=== PATIENT | female | born 1970 | race Caucasian/White ===

== ENCOUNTER 2017-02-02 17:12 | Emergency (ER) | payer OTHER ==
[~2017-02-02 17:12] MED LIST: ABILIFY 5MG5 MG PO; AUGMENTIN 875-1 EACH PO; BACTRIM DS 8001 TAB PO; BACTRIM DS TAB1 EACH PO; CARISOPRODOL350 M1 PO; CLINDAMYCIN HC300 M1 PO; DEXAMETHASONE4 M1 PO; DILAUDID2 M1 PO; FOLIC ACID1 M1 PO; LUNESTA3 M1 PO; MAXALT10 M1 PO; MAXALT10 MG PO; METHOTREXATE2.5 M2 PO; OMEPRAZOLE20 M3 PO; OPANA ER20 M1 PO; PERCOCET 10-321 EACH PO; PREDNISONE 20MG20 MG PO; PREDNISONE10 M2 PO; PREDNISONE20 M1 PO; SERTRALINE HCL100 MG PO; TOPAMAX100 M1 PO; VALACYCLOVIR1000 MG PO
--- NOTE | 2017-02-02 19:10 | ED ANKLE/FOOT INJURY COMPLAINT ---
History of Present Illness General Chief Complaint: Foot or Ankle Injury Stated Complaint: L FOOT PAIN S/P MIRROR FALL ON TOE Source: patient Exam Limitations: no limitations Vital Signs & Intake/Output Vital Signs & Intake/Output Vital Signs Date Time Temp Pulse Resp B/P B/P Pulse O2 O2 Flow FiO2 Mean Ox Delivery Rate 02/02 2022 98 Room Air 02/03 1952 96.5 75 20 127/65 98 Room Air 02/026 98.0 69 15 124/74 100 Room Air Allergies Coded Allergies: shellfish derived (SWELLING=FACIAL SWELLING 01/18/16) Reconcile Medications Atorvastatin Calcium 20 MG TABLET 1 TAB PO QPM CHOLESTEROL (Reported) Carisoprodol 350 MG TABLET 1 TAB PO TID MUSCLE SPASMS (Reported) Doxycycline Hyclate 100 MG TABLET 1 TAB PO BID fx Eszopiclone (Lunesta) 3 MG TABLET 1 TAB PO QPM SLEEP (Reported) Folic Acid 1 MG TABLET 1 TAB PO DAILY SUPPLEMENT (Reported) Gabapentin 300 MG CAPSULE 1 CAP PO TID ANXIETY (Reported) Methotrexate 2.5 MG TABLET 5 TAB PO QTUES RA (Reported) Multivitamin (Multi-Day Vitamins) 1 EACH TABLET 1 TAB PO DAILY SUPPLEMENT ( Reported) Omeprazole 20 MG TABLET.DR 1 TAB PO DAILY GI (Reported) Oxycodone HCl/Acetaminophen (Percocet 10-325 MG Tablet) 1 EACH TABLET 1 TAB PO 6XDAILY PRN PAIN (Reported) Oxymorphone HCl (Opana ER) 20 MG TAB.ER.12H 1 TAB PO BID PAIN (Reported) Prednisone 5 MG TABLET 1 TAB PO PRN RA (Reported) Pyridoxine HCl (Vitamin B-6) (Unknown Strength) CAPSULE (Unknown Dose) PO DAILY SUPPLEMENT (Reported) Rizatriptan Benzoate (Maxalt) 10 MG TABLET 1 TAB PO BID PRN MIGRAINES ( Reported) Sertraline HCl 100 MG TABLET 1 TAB PO BID MENTAL HEALTH (Reported) Topiramate (Topamax) 100 MG TABLET 1 TAB PO BID MIGRAINES (Reported) Valacyclovir HCl (Valacyclovir) 1,000 MG TABLET 1 TAB PO DAILY ANTIVIRAL ( Reported) Triage Note: PT TO ED FOR L TOE PAIN AFTER A MIRROR FELL ON IT OVER THE WEEKEND, TOE APPEARS RED AND SWOLLEN, ABRASION ON IT, PT REPORTING HER MAIN CONCERN IS INFECTION DUE A SCHEDULED HYSTERECTOMY NEXT WEEK. MEDICATED WITH TYLENOL 650MG IN TRIAGE AND ICE PACK APPLIED. Triage Nurses Notes Reviewed? yes Occurred: yesterday Duration: day(s): (1), constant, continues in ED Timing: recent history Severity: moderate, severe Pain/Injury Location: Left: Foot. Method of Injury: direct blow No Modifying Factors: none HPI: 46-year-old female comes into emergency room for evaluation of swelling and pain to left foot. Patient reports that mirror fell off of the back of a door onto her foot. Can abrasion. Sharp throbbing pain. Associated bruising. Denies any injury, anywhere else. Denies numbness associated symptoms. (BLESSING ANDERS) Past History Travel History Traveled to [place] past 21 day No Medical History Any Pertinent Medical History? see below for history Neurological: vertigo EENT: tonsil infections Cardiovascular: NONE Respiratory: NONE Gastrointestinal: NONE Hepatic: cholelithiasis Renal: NONE Musculoskeletal: chronic back pain, degen joint disease, rheumatoid arthritis Psychiatric: anxiety, chronic pain disorder, depression Endocrine: NONE Blood Disorders: NONE Cancer(s): NONE INTERVIEWING CLERK/Reproductive: NONE Other Medical Hx: CELLULITIS History of MRSA: No History of VRE: No History of CDIFF: No Tetanus Vaccine: 01/04/12 Surgical History Surgical History: cholecystectomy, , LUMBAR SURGERY meniscal surgery left knee status post neurostimulator placement status post cervical conization Psychosocial History Who do you live with Family Services at Home None What is your primary language [place] Family History Hx Contributory? No (BLESSING ANDERS) Review of Systems Review of Systems Constitutional: Reports: no symptoms. EENTM: Reports: no symptoms. Respiratory: Reports: no symptoms. Cardiovascular: Reports: no symptoms. GI: Reports: no symptoms. Genitourinary: Reports: no symptoms. Musculoskeletal: Reports: see HPI. Skin: Reports: see HPI. Neurological/Psychological: Reports: no symptoms. Hematologic/Endocrine: Reports: no symptoms. Immunologic/Allergic: Reports: no symptoms. All Other Systems: Reviewed and Negative (BLESSING ANDERS) Physical Exam Physical Exam General Appearance: well developed/nourished, mild distress Head: atraumatic Eyes: Bilateral: normal appearance. Ears, Nose, Throat: normal ENT inspection, hearing grossly normal Neck: normal inspection Cardiovascular/Respiratory: no respiratory distress Back: normal inspection Leg/Knee/Thigh Left: normal inspection Foot Left: ecchymosis, limited range of motion, soft tissue tenderness, swelling , skin abrasion Neuro/Vascular: normal motor function, normal sensation Psychiatric: awake, alert, oriented x 3 Skin: intact, normal color, warm/dry (BLESSING ANDERS) Progress Differential Diagnosis: CHF, cellulitis, septic arthritis, gout, fracture, dislocation, sprain, contusion, compartmental syndrome Plan of Care: Current Medications Sig/Bakari Start time Last Medication Dose Stop Time Status Admin Oxycodone/ 2 TAB ONCE ONE 02/02 2015 UNVr Acetaminophen 02/03 2016 (Percocet) Diagnostic Imaging: Viewed by Me: Radiology Read. Discussed w/RAD: Radiology Read. Radiology Impression: SERVICE DATE: 02/02/17 EXAM TYPE: RAD - XRY-TOES, LEFT EXAMINATION: XR TOES, LEFT CLINICAL INFORMATION: Rule out fracture. Pain and swelling of toes. Reported trauma. COMPARISON: None TECHNIQUE: 3 views of the left toes were obtained. FINDINGS: There is bony fragmentation at the lateral base of the distal phalanx of the second digit with surrounding soft tissue swelling. The remaining osseous structures are normal. The joint spaces are obtained. IMPRESSION: Focal bony fragmentation along the lateral base of the distal phalanx of the second digit with surrounding soft tissue swelling. Given history of trauma, findings likely reflect small avulsion fracture fragments. DICTATED BY: LUCIEN VIRAMONTES MD DATE/TIME DICTATED:02/02/171943 MACHINE RIVETER:ALPESH DATE/TIME TRANSCRIBED:02/02/171943 CONFIDENTIAL, DO NOT COPY WITHOUT APPROPRIATE AUTH (BLESSING ANDERS) Departure Departure Disposition: HOME OR SELF CARE Condition: Stable Clinical Impression Primary Impression: Toe fracture, left Secondary Impressions: Skin abrasion Referrals: MAINOR HUTCHINSON,CHELA ANDRES MD,DAIN (PCP/Family) Additional Instructions: Take Percocet at home. Stay and pneumatic boot. Follow-up with orthopedic doctor. Return if any concerns worsening symptoms. Take doxycycline as prescribed. Please go over all results of today's visit with your primary care doctor. Contact your primary care doctor to let them know you were here in the emergency room. There may be nonspecific findings which may not be related to your visit today here in the emergency room but may require further evaluation and chronic monitoring by your primary care doctor. If you had a laceration today the chance of foreign body always remains. You should follow-up with your primary care doctor for recheck in 3-5 days for a wound check. If you had an x-ray done there is a chance that a fracture could have been missed on initial read and you should follow-up with your primary care doctor for repeat x-rays if symptoms persist. If your blood pressure was elevated here in the emergency room please have rechecked by her primary care doctor within the next 48 hours by your primary care doctor. If you were prescribed a narcotic here in the emergency room or any type of controlled substances you're not allowed to drive while taking this medication or operate any type of heavy machinery. Narcotics can make you feel lightheaded dizziness nausea and can cause constipation. You may need to corn picker a stool softener. Thank you for choosing [facility] emergency room. Please return to the emergency room immediately if you have any other concerns worsening of symptoms. Departure Forms: Customer Survey General Discharge Information Prescriptions: Current Visit Scripts Doxycycline Hyclate 1 TAB PO BID #14 TAB Comments Irrigated with peroxide and dressed with bacitracin. (BLESSING ANDERS) PA/TELEVISION AUDIO ENGINEER Co-Sign Statement Statement: ED Attending supervision documentation- [] I saw and evaluated the patient. I have also reviewed all the pertinent lab results and diagnostic results. I agree with the findings and the plan of care as documented in the PA's/TELEVISION AUDIO ENGINEER's documentation. [X] I have reviewed the ED Record and agree with the PA's/TELEVISION AUDIO ENGINEER's documentation. [] Additions or exceptions (if any) to the PAs/TELEVISION AUDIO ENGINEER's note and plan are summarized below: [] (PHILL HUTCHINSON,LUCIEN Kam) Procedures Splinting Location: left foot Manual Alignment Performed: No Pre-Made Type: pneumatic boot Splint Applied By: splint applied by me Pre-Proc Neuro Vasc Exam: normal Post-Proc Neuro Vasc Exam: normal (BLESSING ANDERS)
[2017-02-02] MEDS ORDERED: ATORVASTATIN CA20 M1 PO (19:33)
[2017-02-02] MEDS ORDERED: METHOTREXATE2.5 M2 PO (19:33)
[2017-02-02] MEDS ORDERED: PREDNISONE5 M1 PO (19:33)
[2017-02-02] MEDS ORDERED: GABAPENTIN300 M2 PO (19:33)
[2017-02-02] MEDS ORDERED: VALACYCLOVIR1000 MG PO (19:34)
[2017-02-02] MEDS ORDERED: MULTI-DAY VITA1 EACH PO (19:34)
[2017-02-02] MEDS ORDERED: VITAMIN B-650 M1 PO (19:35)
--- NOTE | 2017-02-02 19:50 | RADIOLOGY REPORT ---
EXAMINATION: XR TOES, LEFT CLINICAL INFORMATION: Rule out fracture. Pain and swelling of toes. Reported trauma. COMPARISON: None TECHNIQUE: 3 views of the left toes were obtained. FINDINGS: There is bony fragmentation at the lateral base of the distal phalanx of the second digit with surrounding soft tissue swelling. The remaining osseous structures are normal. The joint spaces are obtained. IMPRESSION: Focal bony fragmentation along the lateral base of the distal phalanx of the second digit with surrounding soft tissue swelling. Given history of trauma, findings likely reflect small avulsion fracture fragments.
[2017-02-02 19:52] VITALS: BP 127/65
[2017-02-02] MEDS ORDERED: DOXYCYCLINE HY100 M4 PO (20:06)
[2017-02-04] MEDS ORDERED: PERCOCET 10-321 EACH PO (14:08)
== END 2017-02-02 20:32 ==
LOC: ERH 17:12
DX: S92.532A Displaced fracture of distal phalanx of left lesser toe(s), initial encounter for closed fracture (principal); S90.812A Abrasion, left foot, initial encounter; W20.8XXA Other cause of strike by thrown, projected or falling object, initial encounter; Y93.9 Activity, unspecified; Y92.9 Unspecified place or not applicable
CPT/HCPCS: 73660-LT; 90471; 90714

== ENCOUNTER 2017-02-10 03:09 | Inpatient (IN) | payer OTHER ==
[~2017-02-10] VITALS: Ht 157.5 cm; Wt 87.5 kg
[2017-02-10] VITALS (10 sets, daily range): BP systolic 110–124; BP diastolic 58–70
[~2017-02-10 03:09] MED LIST changes: +ATORVASTATIN CA20 M1 PO; +DOXYCYCLINE HY100 M4 PO; +GABAPENTIN300 M2 PO; +MULTI-DAY VITA1 EACH PO; +PREDNISONE5 M1 PO; +VITAMIN B-650 M1 PO
--- NOTE | 2017-02-10 08:44 | Operative Report ---
Operative/Inv Procedure Report Surgery Date: 02/10/17 Name of Procedure: cystoscopy: bilateral stent insertion Pre-Operative Diagnosis: abnormal pap Post-Operative Diagnosis: same Estimated Blood Loss: scant Surgeon/Datacap Developer: md sebastian, meghann-urology Anesthesia: general endotracheal tube Specimens: ucx Complications: none Operative/Procedure Note Note: The patient was taken to the operating room and placed on the OR table in supine position. Timeout was performed, with the patient awake, to confirm identify, planned procedures, anesthesia, antibiotics and other pertinent jose-operative information. After adequate anesthesia, and IV antibiotics, the patient was placed in lithotomy Yellow-fin stirrups. She was then draped and prepped in the usual surgical fashion, including a vaginal prep. A 22 Greenlandic cystoscope sheath with a 30 angle lens was inserted into the bladder without significant difficulty. The bladder was thoroughly and systematically examined, and was noted to be free of tumor, free of stone, free of endometriosis. Both ureteral orifices were in their orthotopic positions with clear reflux bilaterally. Under direct visualization the left orifice was intubated with a 5 Greenlandic whistle-tip catheter, which was advanced easily into the left kidney pelvis. The right ureteral orifice was intubated with a second 5 Greenlandic ureteral whistle tip catheter, and advanced into the right renal pelvis without difficulty. For identification purposes the blue marked stent went into the left kidney and the right ureteral stent was marked red. Urine culture was obtained and sent to pathology. The cystoscope was then removed leaving both stents in proper place. An 18 Greenlandic Correa catheter was inserted draining clear fluid and 10 mL of sterile water was then placed in the balloon. The ends ureteral stents, which protruded externally, were taped to the Correa catheter in order to secure their position. The individual ureteral stents were then connected to their individual drainage devices. The patient tolerated the procedure well. All sponge needle and instrument count were correct at the end of this procedure. The patient was then placed in supine position with Venodyne's in place. At this point, Dr. Marinelli was able to proceed with the patient's planned surgery. Findings: normal bladder Discharge Disposition: proceed with dr. Marinelli CC: MEGHANN VITAL MD
--- NOTE | 2017-02-10 13:00 | NUR ---
PT ARRIVED TO FLOOR FROM PACU. DROWSY/AROUSABLE. ORIENTED X 3. O2 3L IN PLACE. VSS. SATURATION 98% ON 3L, WEANED TO 2L. PER DAUGHTER, PT "GASPS FOR BREATH" AT NIGHT SOMETIMES. QUESTIONED ABOUT SLEEP APNEA BUT HAS NOT HAD A SLEEP STUDY. PT C/O PAIN 06/15 TO LOWER ABDOMEN AND FROM CATHETER. DRY DSG IN PLACE TO ABDOMEN WITH ABDOMINAL BINDER IN PLACE. IV TYLENOL HUNG FOR PAIN. DILAUDID OPERATING ROOM RN IN PLACE WITH A 0.1MG CONTINUOUS AND 0.1MG DEMAND DOSE. PT HAS HX OF CHRONIC PAIN FOR WHICH SHE TAKES OPANA 20MG BID. PT ALSO HAS NERVE STIMULATOR TO BACK WHICH SHE STATES IS NOT ON AT THIS TIME. MED RECONCILATION DONE, MULTIPLE HOME MEDICATIONS NOT ORDERED. CALL PLACED TO DR. HAY'S ANSWERING SERVICE, AWAITING CALL BACK. PT ORIENTED TO CALL SYSTEM. TAKING SIPS OF CLEAR LIQUIDS AT THIS TIME. DAUGHTERS AT BEDSIDE.
--- NOTE | 2017-02-10 15:30 | NUR ---
CALL RETURNED FROM DR. HAY CONCERNING PT'S HOME MEDICATIONS. PER MD, PT WILL NOT RECEIVE OPANA OR ANY OTHER LONG ACTING PAIN MEDICATION WHILE IN HOSPITAL. ALSO STATES THAT SHE MUST KEEP THE CATHETER IN PLACE OVERNIGHT. PT NOTIFIED OF UPDATES.
[2017-02-10 19:01] LABS: ABSOLUTE BASOPHIL COUNT 0 /CUMM (0.0-0.2); ABSOLUTE EOSINOPHIL COUNT 0 /CUMM (0.0-0.7); ABSOLUTE GRANULOCYTE CT 8.4 /CUMM (1.4-6.5); ABSOLUTE LYMPH COUNT 0.6 /CUMM (1.2-3.4); ABSOLUTE MONOCYTE COUNT 0.2 /CUMM (0.10-0.60); BASOPHIL % 0 % (0.0-2.0); EOSINOPHIL % 0 % (0-5); HEMATOCRIT 38.7 % (37-47); MEAN CORPUSCULAR HGB 30.2 PG (27.0-31.0); MEAN CORPUSCULAR HGB CONC 32.7 G/DL (33.0-37.0); MEAN CORPUSCULAR VOLUME 92.4 FL (81.0-99.0); MEAN PLATELET VOLUME 8.6 FL (7.4-10.4); PLATELET COUNT 167 /CUMM (130-400); RED BLOOD CELL CT 4.19 /CUMM (4.20-5.40); WHITE BLOOD CELL COUNT 9.1 /CUMM (4.8-10.8)
[2017-02-10 19:12] LABS: GRANULOCYTE % 92.1 % (42.2-75.2)
[2017-02-11 01:56] VITALS: BP 124/70
[2017-02-11 04:30] VITALS: BP 136/80
[2017-02-11 06:25] VITALS: BP 134/80
[2017-02-11 08:22] LABS: ABSOLUTE BASOPHIL COUNT 0 /CUMM (0.0-0.2); ABSOLUTE EOSINOPHIL COUNT 0 /CUMM (0.0-0.7); ABSOLUTE GRANULOCYTE CT 6.4 /CUMM (1.4-6.5); ABSOLUTE LYMPH COUNT 1.1 /CUMM (1.2-3.4); ABSOLUTE MONOCYTE COUNT 0.6 /CUMM (0.10-0.60); BASOPHIL % 0.2 % (0.0-2.0); EOSINOPHIL % 0 % (0-5); GRANULOCYTE % 79.4 % (42.2-75.2); HEMATOCRIT 34.8 % (37-47); MEAN CORPUSCULAR HGB 30.4 PG (27.0-31.0); MEAN CORPUSCULAR HGB CONC 33.3 G/DL (33.0-37.0); MEAN CORPUSCULAR VOLUME 91.2 FL (81.0-99.0); MEAN PLATELET VOLUME 8.9 FL (7.4-10.4); PLATELET COUNT 158 /CUMM (130-400); RBC DISTRIBUTION WIDTH 15.3 % (11.5-14.5); RED BLOOD CELL CT 3.82 /CUMM (4.20-5.40)
[2017-02-11 10:00] VITALS: BP 118/78
--- NOTE | 2017-02-11 10:18 | Operative Report ---
Operative/Inv Procedure Report Surgery Date: 02/10/17 Name of Procedure: Total abdominal hysterectomy bilateral salpingo-oophorectomy Pre-Operative Diagnosis: Chronic cervical dysplasia Post-Operative Diagnosis: Same Estimated Blood Loss: 50ml to 100ml Surgeon/Director Rehabilitation Program: HAYLEY WALTERS MD,ЮЛИЯ Arreguin M.D. Anesthesia: general endotracheal tube Operative/Procedure Note Note: The patient was brought to the operating room and placed on the OR table in the dorsal supine position. After general anesthesia was administered she was successfully intubated. She was repositioned into modified dorsal lithotomy and underwent ureteral stent insertion by Dr. Duarte. She was then given a tabs block by anesthesia. She was repositioned into dorsal supine. A Correa catheter was draining clear yellow urine status post a stent procedure. Her abdomen was prepped and draped in usual sterile fashion. A Pfannenstiel skin incision was made with a scalpel and this was taken down to the layer of the fascia. The fascia was nicked in the midline and extended bilaterally. The rectus muscles were and the peritoneal cavity was entered sharply. Examination of the pelvic organs revealed a 14 week size uterus with normal ovaries. Intestines were packed away with moistened laparotomy pads. An O'Rich[place]-O' Kennedy retractor was placed and a bladder light was placed with a period of double-tooth tenaculum was attached to the fundus of the uterus and this was elevated throughout the procedure. The right round ligament was suture ligated with 0 Polysorb and tagged. Same procedure repeated on the left. The bladder flap was created using Metzenbaum scissors and taken down off the lower uterine segment and cervix. 2 Elva clamps were placed across the adnexa. The right uterine ovarian complex was clamped with a Jaya clamp transected and suture ligated with 0 Polysorb with good hemostasis. Same procedure procedure was repeated on the left with good hemostasis. The right uterine artery was clamped with a Dillon clamp transected and suture ligated with 0 Polysorb with good hemostasis. The same procedure is repeated on the left with good hemostasis. Sequentially and bilaterally the cardinal ligaments were taken through clamping transection and suture ligament ligation was 0 Polysorb with good hemostasis. On the vaginal tissue was reached the cervix was crossclamped with 2 great duct clamps and excised. The vaginal cuff was then oversewn using 0 Polysorb in a running locking fashion. Attention was then paid to the right ovary and fallopian tube which was elevated with a Rosa clamp and clamped using 2 great duct clamps. The ovary and fallopian tube were then excised and sent to pathology. A free tie was placed followed by suture ligature of 0 Polysorb with good hemostasis. Essentially the same procedure is repeated on the left with good hemostasis. Of note the rectosigmoid colon was somewhat adherent to the ovary and this was taken down sharply. Stasis was good. The pelvis was then copiously irrigated with warm saline and all pedicles and suture sites were noted to be hemostatic. At this point arrest of coagulation was placed on the vaginal cuff. The laparotomy pads and instruments were removed. The rectus muscles were reapproximated using 2 interrupted sutures of 0 Polysorb. The fascia was then closed using 0 Polysorb in a running locking fashion. Subcutaneous tissues were irrigated and coagulated were needed. The skin was closed using oly a dry sterile dressing was applied to the wound the vaginal cuff was then inspected and noted to be hemostatic. The stents were removed the patient was awakened and sent to recovery in good condition. All needle, sponge, and instrument counts were correct at the end of the procedure 2.
--- NOTE | 2017-02-11 10:20 | PN- General Surgery ---
Subjective Subjective: Some back and incisional pain Review of Systems: No flatus Objective Vital Signs and I&Os Vital Signs Date Time Temp Pulse Resp B/P B/P Pulse O2 O2 Flow FiO2 Mean Ox Delivery Rate 02/11 0625 98.2 85 20 134/80 95 Nasal Cannula /08 0430 98.1 68 18 136/80 96 Nasal Cannula /08 0156 98.2 73 18 124/70 98 Nasal Cannula 06/08 0000 Nasal 2.0L Cannula 02/10 2354 97.8 73 18 120/68 96 Nasal Cannula / 2200 98.4 76 20 124/62 94 Nasal Cannula / 2058 Nasal 2.0L Cannula / 2005 98.7 86 20 124/60 95 Nasal Cannula / 1811 98.1 64 19 110/60 94 Nasal Cannula / 1800 98.1 64 19 110/60 06/07 1613 98.1 72 19 112/60 94 Nasal Cannula / 1600 98.1 72 19 112/60 /07 1543 98 Nasal 3.0L Cannula 02/10 1441 98.3 76 18 110/58 97 Room Air / 1400 98.3 76 18 110/58 06/07 1245 98.2 63 18 114/70 06/07 1245 98.2 63 18 114/70 98 Nasal 3.0L Cannula Intake & Output 02/11 1600 02/11 0800 06/08 0000 06/ 1600 / 0800 06/07 0000 Intake Total 1100 600 350 Output Total 850 1450 450 Balance 250 -850 -100 Intake, IV 1000 500 250 Intake, Oral 100 100 100 Number 0 Bowel Movements Output, Urine 850 1450 450 Patient 193 lb Weight Weight Reported by Patient Measurement Method Physical Exam: Abdomen is soft nondistended incision clean dry and intact Extremities nontender Assessment/Plan Assessment/Plan Status post IRVIN/BSO postop day #1 stable Plan: DC Correa and DAMPER FITTER advance diet and increase activity Problem List: 1. Dysplasia of cervix uteri, unspecified Core Measures/Miscellaneous Venous Thromboembolism VTE Risk Factors: Obesity, Surgery VTE Contraindications: No Contraindications VTE Diagnosis: No Beta Benitez Is Beta Benitez a Home Med? No Antibiotics Is Patient on Antibiotics? No
[2017-02-11 15:24] VITALS: BP 130/70
--- NOTE | 2017-02-11 21:54 | NUR ---
LATE ENTRY - SMALL AMT OF SS DRAINAGE NOTED TO STAPLE LINE, CLEANSED WITH NS AND DRESSED WITH TELFA AND ABD PAD. LALITHA REMAIN INTACT
[2017-02-11 22:08] VITALS: BP 106/66
[2017-02-12 06:35] VITALS: BP 112/60
[2017-02-12] MEDS ORDERED: PERCOCET 5-3251 EACH PO (10:42)
--- NOTE | 2017-02-20 10:37 | Surgical Discharge Summary ---
Visit Information Visit Dates Admission Date: 02/10/17 Discharge Date: 02/12/17 History of Present Illness Chief Complaint: Chronic dysplasia Medical History Neurological: meningitis, vertigo EENT: tonsil infections Cardiovascular: NONE Respiratory: NONE Gastrointestinal: NONE Hepatic: cholelithiasis Renal: NONE Musculoskeletal: chronic back pain, degen joint disease, rheumatoid arthritis Psychiatric: anxiety, chronic pain disorder, depression Endocrine: NONE Blood Disorders: NONE Cancer(s): NONE AUTOMOBILE BODY REPAIRER/Reproductive: history of herpes encephalitis cervical dysplasia Other Medical Hx: CELLULITIS History of MRSA: Yes History of VRE: No History of CDIFF: No Isolation History: Contact Tetanus Vaccine: 02/02/17 Surgical History Pertinent Surgical History: cholecystectomy, , LUMBAR SURGERY meniscal surgery left knee status post neurostimulator placement status post cervical conization Psychosocial History Where Do You Live? Home Who Do You Live With? Family Services at Home: None What is Your Primary Language? Romansh Review of Systems: Chronic pain Hospital Course Course Attending Physician: ЮЛИЯ HAY MD Primary Care Physician: MCKENNA HUTCHINSON,[facility] Hospital Course: The patient was admitted and underwent total abdominal hysterectomy and bilateral salpingectomy oophorectomy without complication. She was sent to recovery in good condition. Postoperative day #1 her Correa was discontinued diet was advanced activity was increased and she was given by mouth pain meds. On postoperative day #2 she was discharged Allergies: Coded Allergies: shellfish derived (SWELLING=FACIAL SWELLING 01/18/16) Disposition Summary Disposition Principal Diagnosis: Chronic cervical dysplasia Additional Diagnosis: Chronic pain syndrome Discharge Disposition: home or self care Discharge Instructions General Discharge Information Code Status: Full Code Patient's Diet: Regular Patient's Activity: Pelvic rest with weight restrictions Follow-Up Instructions/Appts: 1 week Medications at Discharge Discharge Medications: Continue taking these medications: Sertraline HCl (Sertraline HCl) 100 MG TABLET 1 Tablet ORAL TWICE DAILY Comments: Last Taken: 02/12/17 Time: 9AM Carisoprodol (Carisoprodol) 350 MG TABLET 1 Tablet ORAL THREE TIMES DAILY Comments: Last Taken: 02/12/17 Time: 9AM Topiramate (Topamax) 100 MG TABLET 1 Tablet ORAL TWICE DAILY Comments: Last Taken: 02/12/17 Time: 9AM Oxymorphone HCl (Opana ER) 20 MG TAB.ER.12H 1 Tablet ORAL TWICE DAILY Comments: Last Taken: 02/12/17 Time: 9AM OXYCONTIN GIVEN SUBSTITUTION Omeprazole (Omeprazole) 20 MG TABLET.DR 1 Tablet ORAL DAILY Comments: Last Taken: 02/12/17 Time: 6AM Eszopiclone (Lunesta) 3 MG TABLET 1 Tablet ORAL Every night Comments: NOT GIVEN WHILE IN HOSPITAL Rizatriptan Benzoate (Maxalt) 10 MG TABLET 1 Tablet ORAL TWICE DAILY as needed for MIGRAINES Comments: NOT GIVEN IN HOSPTIAL Methotrexate (Methotrexate) 2.5 MG TABLET 5 Tablet ORAL EVERY WEDNESDAY Qty = 24 Gabapentin (Gabapentin) 300 MG CAPSULE 1 Capsule ORAL TWICE DAILY Qty = 270 Comments: Last Taken: 02/11/17 Time: 9AM Atorvastatin Calcium (Atorvastatin Calcium) 20 MG TABLET 1 Tablet ORAL Every night Qty = 90 Comments: Last Taken: 02/11/17 Time: 5PM Prednisone (Prednisone) 5 MG TABLET 1 Tablet ORAL as needed for RA Qty = 90 Comments: Last Taken: 02/12/17 Time: 9AM 20MG TAB GIVEN WHILE IN HOSPITAL Valacyclovir HCl (Valacyclovir) 1,000 MG TABLET 1 Tablet ORAL DAILY Comments: Last Taken: 02/11/17 Time: 10PM Oxycodone HCl/Acetaminophen (Percocet 10-325 MG Tablet) 10 MG-325 MG TABLET 1 Tablet ORAL 4 TIMES A DAY as needed for PAIN Comments: Last Taken: 02/12/17 Time: 8AM Start taking the following new medications: Oxycodone HCl/Acetaminophen (Percocet 5-325 MG Tablet) 5 MG-325 MG TABLET 1-2 Tablet ORAL EVERY 4 HOURS NEEDED as needed for PAIN SCALE 5-10 Qty = 32 No Refills Comments: Last Taken: 02/12/17 Time: 8AM
== END 2017-02-12 11:33 | DRG 743 ==
LOC: SDA 03:09 → ENRESERV 11:40 → ENTRNSPT 12:08 → EDTRNSPT 12:26 → EDTRNSPTTYP 12:26 → 2NA 12:35 → CMPTRNSPT 12:49 → ENPENDDIS 02-12 10:44 → 2NA 02-12 11:33
PROVIDERS: ADMIT Obstetrics & Gynecology
PROC: 0UT70ZZ Resection of Bilateral Fallopian Tubes, Open Approach (ICD-10-PCS; principal; 2017-02-10)
PROC: 0UTC0ZZ Resection of Cervix, Open Approach (ICD-10-PCS; principal; 2017-02-10)
PROC: 0UT20ZZ Resection of Bilateral Ovaries, Open Approach (ICD-10-PCS; principal; 2017-02-10)
PROC: 0UT90ZZ Resection of Uterus, Open Approach (ICD-10-PCS; principal; 2017-02-10)
PROC: 0T788DZ Dilation of Bilateral Ureters with Intraluminal Device, Via Natural or Artificial Opening Endoscopic (ICD-10-PCS; 2017-02-10)
PROC: 3E0T3CZ (ICD-10-PCS; 2017-02-10)
DX: N87.9 Dysplasia of cervix uteri, unspecified (principal); E66.9 Obesity, unspecified; E78.5 Hyperlipidemia, unspecified; F41.9 Anxiety disorder, unspecified; M54.9 Dorsalgia, unspecified
CPT/HCPCS: 2NAP; 36415; 81025; 87086; 88309; J0131; J0694; J1100; J1170; J1200; J1650; J1885; J2405; J3250; J3490

== ENCOUNTER 2017-02-18 18:46 | Emergency (ER) | payer OTHER ==
[~2017-02-18] VITALS: Ht 157.5 cm; Wt 85.7 kg
[~2017-02-18 18:46] MED LIST changes: +PERCOCET 5-3251 EACH PO
[2017-02-18] MEDS ORDERED: ESTRADIOL1 EAC8 TOP (19:46)
[2017-02-18 20:16] LABS: ABSOLUTE BASOPHIL COUNT 0 /CUMM (0.0-0.2); ABSOLUTE EOSINOPHIL COUNT 0.3 /CUMM (0.0-0.7); ABSOLUTE GRANULOCYTE CT 5.2 /CUMM (1.4-6.5); ABSOLUTE LYMPH COUNT 1.8 /CUMM (1.2-3.4); ABSOLUTE MONOCYTE COUNT 0.6 /CUMM (0.10-0.60); BASOPHIL % 0.1 % (0.0-2.0); EOSINOPHIL % 3.8 % (0-5); HEMATOCRIT 38.2 % (37-47); MEAN CORPUSCULAR HGB 30.3 PG (27.0-31.0); MEAN CORPUSCULAR HGB CONC 33.3 G/DL (33.0-37.0); MEAN CORPUSCULAR VOLUME 90.8 FL (81.0-99.0); MEAN PLATELET VOLUME 8.3 FL (7.4-10.4); PLATELET COUNT 213 /CUMM (130-400); RBC DISTRIBUTION WIDTH 15.3 % (11.5-14.5); RED BLOOD CELL CT 4.21 /CUMM (4.20-5.40); WHITE BLOOD CELL COUNT 7.9 /CUMM (4.8-10.8)
--- NOTE | 2017-02-18 20:23 | CT SCAN REPORT ---
EXAMINATION: CT ABDOMEN AND PELVIS WITHOUT CONTRAST CLINICAL INFORMATION: Lower abdominal collection hematoma, seroma. COMPARISON: None TECHNIQUE: Multidetector volumetric imaging was performed from the superior aspect of the liver through the pubic symphysis. Sagittal and coronal reformatted images were obtained on the technologist's workstation. DLP: 726.51 mGy-cm FINDINGS: LUNG BASES: The visualized lung bases are unremarkable. LIVER, GALLBLADDER, AND BILIARY TREE: The liver is normal in size, shape, and attenuation. No focal hepatic lesion or biliary ductal dilatation is present. There is a grouping of coarse calcifications along the capsular surface of the liver posteriorly. Status post cholecystectomy. Extrahepatic CBD measures 8 mm. No calcified stone within the bile duct. PANCREAS: Unremarkable. SPLEEN: Spleen measures 14.7 x 13 x 8 cm ADRENAL GLANDS: Unremarkable. KIDNEYS AND URETERS: The kidneys are normal in size, shape, and attenuation. No hydronephrosis, hydroureter, or calculi seen. No perinephric stranding. BLADDER: Unremarkable. GASTROINTESTINAL TRACT: No acute change of the bowel. No bowel obstruction. No bowel wall thickening or edema. Moderate volume of stool throughout the colon. The appendix is normal. The small bowel loops are unremarkable. ABDOMINAL WALL: No ventral wall hernia. Edema in the subcutaneous tissue lower anterior pelvis consistent with surgical incision. No dehiscence. No abscess or large fluid collection LYMPH NODES: Normal. VASCULAR: Unremarkable. PELVIC VISCERA: Postsurgical changes of pelvis. Small amount of fluid in the pelvis in the cul-de-sac area but no abscess. No large hematoma. The uterus is likely surgically absent. Correlate with history. OSSEOUS STRUCTURES: Status post fusion with disc spacers and transpedicular screws from L4 to S1. Neural stimulator probes passing into the spinal canal from 2 separate generators one on the left and one on the right over the posterior iliac crest. IMPRESSION: Transverse anterior pelvic wall incision intact with no hematoma or dehiscence. Small amount of fluid/edema in the subcutaneous tissue at the incision site. There is a small amount of fluid in the cul-de-sac around residual uterus and/or cervix. No abscess.
--- NOTE | 2017-02-18 21:14 | ED GI/GU/ABDOMINAL COMPLAINT ---
History of Present Illness General Chief Complaint: Abdominal Pain/Flank Pain Stated Complaint: LOWER ABD PAIN Source: patient, old records Exam Limitations: no limitations Vital Signs & Intake/Output Vital Signs & Intake/Output Vital Signs Date Time Temp Pulse Resp B/P B/P Pulse O2 O2 Flow FiO2 Mean Ox Delivery Rate 02/188 97.5 84 16 117/60 97 Room Air 02/18 1858 97.5 98 18 122/76 98 Room Air Allergies Coded Allergies: shellfish derived (SWELLING=FACIAL SWELLING 01/18/16) Reconcile Medications Atorvastatin Calcium 20 MG TABLET 1 TAB PO QPM CHOLESTEROL (Reported) Carisoprodol 350 MG TABLET 1 TAB PO TID MUSCLE SPASMS (Reported) Estradiol 0.025 MG/24 HOUR PATCH.TDWK 1 PATCH TOP QW HRT (Reported) Eszopiclone (Lunesta) 3 MG TABLET 1 TAB PO QPM SLEEP (Reported) Gabapentin 300 MG CAPSULE 1 CAP PO BID ANXIETY (Reported) Methotrexate 2.5 MG TABLET 5 TAB PO QTUES RA (Reported) Omeprazole 20 MG TABLET.DR 1 TAB PO DAILY GI (Reported) Oxycodone HCl/Acetaminophen (Percocet 10-325 MG Tablet) 10 MG-325 MG TABLET 1 TAB PO 4 TIMES/DAY PRN PAIN (Reported) Oxycodone HCl/Acetaminophen (Percocet 5-325 MG Tablet) 5 MG-325 MG TABLET 1-2 TAB PO BID pain Oxycodone HCl/Acetaminophen (Percocet 5-325 MG Tablet) 5 MG-325 MG TABLET 1-2 TAB PO Q4P PRN PAIN SCALE 5-10 Oxymorphone HCl (Opana ER) 20 MG TAB.ER.12H 1 TAB PO BID PAIN (Reported) Prednisone 5 MG TABLET 1 TAB PO PRN RA (Reported) Rizatriptan Benzoate (Maxalt) 10 MG TABLET 1 TAB PO BID PRN MIGRAINES ( Reported) Sertraline HCl 100 MG TABLET 1 TAB PO BID MENTAL HEALTH (Reported) Topiramate (Topamax) 100 MG TABLET 1 TAB PO BID MIGRAINES (Reported) Valacyclovir HCl (Valacyclovir) 1,000 MG TABLET 1 TAB PO DAILY ANTIVIRAL ( Reported) Triage Note: PT STATES THAT ON 02/10 SHE HAD HYSTERECTOMY AND WEDNESDAY SURESH WERE REMOVED, 1 HOUR AGO WHILE GETTING OOB THE L SIDE OF INCISION OPENED AND BLOOD GUSHED OUT , NO BLEEDING AT THIS TIME, PT NOTED WITH STERI STRIPS IN PLACE. STATES THAT PAIN IS 10/10 Triage Nurses Notes Reviewed? yes ? n Is pt currently ? No Onset: Abrupt Duration: day(s):, constant, continues in ED Timing: single episode today Location: lower abd Radiation: no radiation Activities at Onset: none No Modifying Factors: none HPI: 46-year-old female comes into emergency room for further evaluation of discharge from her incision site. It reports that she had a hysterectomy last week performed. Suresh removed a couple days ago. She reports that today she had a gush of fluid that came out of the incision site and opened up. Presently fever chills. Some mild cramping. Denies any other associated symptoms. (BLESSING ANDERS) Past History Travel History Traveled to [place] past 21 day No Medical History Any Pertinent Medical History? see below for history Neurological: meningitis, vertigo EENT: tonsil infections Cardiovascular: NONE Respiratory: NONE Gastrointestinal: NONE Hepatic: cholelithiasis Renal: NONE Musculoskeletal: chronic back pain, degen joint disease, rheumatoid arthritis Psychiatric: anxiety, chronic pain disorder, depression Endocrine: NONE Blood Disorders: NONE Cancer(s): NONE PROGRAM ADVOCATE/Reproductive: history of herpes encephalitis cervical dysplasia Other Medical Hx: CELLULITIS History of MRSA: Yes History of VRE: No History of CDIFF: No Tetanus Vaccine: 02/02/17 Surgical History Surgical History: cholecystectomy, , LUMBAR SURGERY meniscal surgery left knee status post neurostimulator placement status post cervical conization Psychosocial History Who do you live with Family Services at Home None What is your primary language Danish Tobacco Use: Never used ETOH Use: denies use Illicit Drug Use: denies illicit drug use Family History Hx Contributory? No (BLESSING ANDERS) Review of Systems Review of Systems Constitutional: Reports: see HPI. EENTM: Reports: no symptoms. Respiratory: Reports: no symptoms. Cardiovascular: Reports: no symptoms. GI: Reports: no symptoms. Genitourinary: Reports: no symptoms. Musculoskeletal: Reports: see HPI. Skin: Reports: see HPI. Neurological/Psychological: Reports: no symptoms. Hematologic/Endocrine: Reports: no symptoms. Immunologic/Allergic: Reports: no symptoms. All Other Systems: Reviewed and Negative (BLESSING ANDERS) Physical Exam Physical Exam General Appearance: well developed/nourished, alert, awake Head: atraumatic Eyes: Bilateral: normal appearance. Ears, Nose, Throat, Mouth: hearing grossly normal, moist mucous membrane Neck: normal inspection Respiratory: no respiratory distress Gastrointestinal: soft, Incision site shows no erythema, small area of dehiscence on the lateral aspect on the left side, some bloody discharge, Back: normal inspection Extremities: normal range of motion Neurologic/Psych: awake, alert, oriented x 3 Core Measures ACS in differential dx? No Severe Sepsis Present: No Septic Shock Present: No (BLESSING ANDERS) Progress Differential Diagnosis: abdominal wall abscess, seroma, cellulitis, intra- abdominal hematoma, Plan of Care: Orders Procedure Date/time Status COMPREHENSIVE METABOLIC PANEL 02/19 1936 Complete CBC WITHOUT DIFFERENTIAL 02/19 1936 Complete Laboratory Tests 02/18/171944: Anion Gap 12, Estimated GFR > 60, BUN/Creatinine Ratio 12.9, Glucose 114 H, Calcium 8.9, Total Bilirubin 0.4, AST 31, ALT 80 H, Alkaline Phosphatase 84, Total Protein 6.9, Albumin 4.0, Globulin 2.9, Albumin/Globulin Ratio 1.4, CBC w Diff NO MAN DIFF REQ, RBC 4.21, MCV 90.8, MCH 30.3, RDW 15.3 H, MPV 8.3, Gran % 65.0, Lymphocytes % 23.2, Monocytes % 7.9, Eosinophils % 3.8, Basophils % 0.1, Absolute Granulocytes 5.2, Absolute Lymphocytes 1.8, Absolute Monocytes 0.6, Absolute Eosinophils 0.3, Absolute Basophils 0, PUBS MCHC 33.3 Diagnostic Imaging: Viewed by Me: CT Scan. Discussed w/RAD: CT Scan. Radiology Impression: SERVICE DATE: 02/18/17 EXAM TYPE: CAT - CT ABD & PELVIS W/O IV CONTRAS EXAMINATION: CT ABDOMEN AND PELVIS WITHOUT CONTRAST CLINICAL INFORMATION: Lower abdominal collection hematoma, seroma. COMPARISON: None TECHNIQUE: Multidetector volumetric imaging was performed from the superior aspect of the liver through the pubic symphysis. Sagittal and coronal reformatted images were obtained on the technologist's workstation. DLP: 726.51 mGy-cm FINDINGS: LUNG BASES: The visualized lung bases are unremarkable. LIVER, GALLBLADDER, AND BILIARY TREE: The liver is normal in size, shape, and attenuation. No focal hepatic lesion or biliary ductal dilatation is present. There is a grouping of coarse calcifications along the capsular surface of the liver posteriorly. Status post cholecystectomy. Extrahepatic CBD measures 8 mm. No calcified stone within the bile duct. PANCREAS: Unremarkable. SPLEEN: Spleen measures 14.7 x 13 x 8 cm ADRENAL GLANDS: Unremarkable. KIDNEYS AND URETERS: The kidneys are normal in size, shape, and attenuation. No hydronephrosis, hydroureter, or calculi seen. No perinephric stranding. BLADDER: Unremarkable. GASTROINTESTINAL TRACT: No acute change of the bowel. No bowel obstruction. No bowel wall thickening or edema. Moderate volume of stool throughout the colon. The appendix is normal. The small bowel loops are unremarkable. ABDOMINAL WALL: No ventral wall hernia. Edema in the subcutaneous tissue lower anterior pelvis consistent with surgical incision. No dehiscence. No abscess or large fluid collection LYMPH NODES: Normal. VASCULAR: Unremarkable. PELVIC VISCERA: Postsurgical changes of pelvis. Small amount of fluid in the pelvis in the cul- de-sac area but no abscess. No large hematoma. The uterus is likely surgically absent. Correlate with history. OSSEOUS STRUCTURES: Status post fusion with disc spacers and transpedicular screws from L4 to S1. Neural stimulator probes passing into the spinal canal from 2 separate generators one on the left and one on the right over the posterior iliac crest. IMPRESSION: Transverse anterior pelvic wall incision intact with no hematoma or dehiscence. Small amount of fluid/edema in the subcutaneous tissue at the incision site. There is a small amount of fluid in the cul-de-sac around residual uterus and/or cervix. No abscess. DICTATED BY: MARK HARMON MD DATE/TIME DICTATED:02/18/172011 FISHERY BIOLOGIST:ALPESH DATE/TIME TRANSCRIBED:02/18/172011 CONFIDENTIAL, DO NOT COPY WITHOUT APPROPRIATE AUTHORIZATION. Initial ED EKG: none Comments: 02/18/2017 10:08:43 PM Patient clinically looks well. She is in no apparent distress. She is nontoxic -appearing. There is no signs of infection. Patient has some wound dehiscence. Patient is going to follow back up with Dr. Mederos. Keep covered with abdominal pad dressing. Return if any other concerns. Patient understands and agrees with plan of care. (SUNITHA MCGEE,BLESSING) Departure Departure Disposition: HOME OR SELF CARE Condition: Stable Clinical Impression Primary Impression: Wound dehiscence Referrals: MCKENNA HUTCHINSON,DAIN (PCP/Family) Additional Instructions: Follow-up with your [employer] doctor. Return to emergency room if any concerns worsening symptoms. Wash signs of infection such as redness or discharge fever chills. Please go over all results of today's visit with your primary care doctor. Contact your primary care doctor to let them know you were here in the emergency room. There may be nonspecific findings which may not be related to your visit today here in the emergency room but may require further evaluation and chronic monitoring by your primary care doctor. If you had a laceration today the chance of foreign body always remains. You should follow-up with your primary care doctor for recheck in 3-5 days for a wound check. If you had an x-ray done there is a chance that a fracture could have been missed on initial read and you should follow-up with your primary care doctor for repeat x-rays if symptoms persist. If your blood pressure was elevated here in the emergency room please have rechecked by her primary care doctor within the next 48 hours by your primary care doctor. If you were prescribed a narcotic here in the emergency room or any type of controlled substances you're not allowed to drive while taking this medication or operate any type of heavy machinery. Narcotics can make you feel lightheaded dizziness nausea and can cause constipation. You may need to garbage pick up man a stool softener. Thank you for choosing [facility] emergency room. Please return to the emergency room immediately if you have any other concerns worsening of symptoms. Departure Forms: Customer Survey General Discharge Information Prescriptions: Current Visit Scripts Oxycodone HCl/Acetaminophen (Percocet 5-325 MG Tablet) 1-2 TAB PO BID #10 TAB (BLESSING ANDERS) PA/ELECTRIC KNIFE OPERATOR Co-Sign Statement Statement: ED Attending supervision documentation- I saw and evaluated the patient. I have also reviewed all the pertinent lab results and diagnostic results. I agree with the findings and the plan of care as documented in the PA's/ELECTRIC KNIFE OPERATOR's documentation. x I have reviewed the ED Record and agree with the PA's/ELECTRIC KNIFE OPERATOR's documentation. [] Additions or exceptions (if any) to the PAs/ELECTRIC KNIFE OPERATOR's note and plan are summarized below: [] (MARY HUTCHINSON,EVERETT)
[2017-02-18 21:18] VITALS: BP 117/60
[2017-02-18] MEDS ORDERED: PERCOCET 5-3251 EACH PO (21:21)
== END 2017-02-18 21:41 ==
LOC: ERH 18:46
PROVIDERS: Physician Assistant Medical
DX: T81.31XA Disruption of external operation (surgical) wound, not elsewhere classified, initial encounter (principal)
CPT/HCPCS: 74176